=== PATIENT | male | born 1950 | race Caucasian/White ===

== ENCOUNTER 2016-12-09 08:42 | Day surgery (SDC) | payer MEDICARE, BC ==
[2016-12-09 09:13] VITALS: RESP 14; TEMP 98.1
[2016-12-09] MEDS ORDERED: ALPRAZolam 0.5 MG TAB PO STA (09:16)
[2016-12-09 09:33] LABS: Glucose,Whole Blood 107 mg/dL (75-99)
[2016-12-09 10:38] VITALS: BP 144/78; PULSE 92
--- NOTE | 2016-12-09 12:56 | US ---
EXAMINATION TYPE: US biopsy lymph node DATE OF EXAM: 12/09/2016 HISTORY: left neck mass. FINDINGS: Maximal barrier technique was utilized. The skin overlying a suitable path to the patient' s mass was localized with ultrasound and the overlying skin prepped and draped. Ultrasound was utili zed with sterile technique. Lidocaine was used for local anesthesia. A skin сергей was made with a sc alpel. A 20-gauge needle was advanced under direct ultrasound guidance and core specimen obtained of the mass. Specimen submitted in formalin to Pathology. Following the procedure, hemostasis achieve d and the patient is discharged in stable condition without complication. IMPRESSION:STATUS POST ULTRASOUND GUIDED CORE BIOPSY OF left supraclavicular MASS, PATHOLOGY IS PENDI NG. THIS PROCEDURE IS PERFORMED BY THE UNDERSIGNED.
== END 2016-12-09 10:50 | disposition home or self-care (01) ==
LOC: RADPROMAIN 08:42
PROVIDERS: ATTEND Family Medicine
DX: C82.11 Follicular lymphoma grade II, lymph nodes of head, face, and neck (principal)
CPT/HCPCS: 38505; 76942; 88305

== ENCOUNTER → 2017-03-25 | Outpatient (CLI) | payer MEDICARE, BC ==
[2017-03-25 11:54] LABS: Blood Urea Nitrogen 19 mg/dL (9-20); Non-African American GFR(MDRD) >60 (>60 ml/min/1.73 sqM)
--- NOTE | 2017-03-25 14:34 | CT ---
EXAMINATION TYPE: CT ChestAbdPelvis w con DATE OF EXAM: 03/25/2017 COMPARISON: Outside examination dated 11/19/2016 HISTORY: Lymphoma CT DLP: 2814.60 mGycm. Automated Exposure Control for Dose Reduction was Utilized. CONTRAST: CT scan of the thorax, abdomen and pelvis is performed with IV Contrast, patient injected with 100 ml mL of Omnipaque 300. FINDINGS: LUNGS: Singular right-sided pulmonary nodule within the right middle lobe measures 5 mm on series 5 i mage 26. Respiratory motion does slightly limit evaluation for subcentimeter pulmonary nodules. Subse gmental bibasilar dependent atelectasis is noted. The lungs are grossly clear, there is no concerning parenchymal mass or nodule identified. There is no pleural effusion or pneumothorax seen. The tra cheobronchial tree is patent. MEDIASTINUM: Soft tissue density posterior to the esophagus within the inferior mediastinum measures 4.7 x 2.6 x 8.1 cm and is seen deviating the esophagus anteriorly. This appears similar to the prior exam. OTHER: Left supraclavicular adenopathy measures 2.4 x 2.1 cm. LIVER/GB: No significant abnormality is appreciated. PANCREAS: No significant abnormality is seen. SPLEEN: Spleen is mildly enlarged measuring 14.0 cm. ADRENALS: No significant abnormality is seen. KIDNEYS: Hypoattenuated right renal lesions are too small to accurately characterize. No hydronephros is is seen. Left kidney is unremarkable. BOWEL: No significant abnormality is seen. LYMPH NODES: Numerous mesenteric lymph nodes are seen, which are enlarged most pronounced within the central mesentery. The largest conglomeration of nodes is inferior to the field of view provided on t he outside CT chest of 11/19/2016 and the seen within the right para midline upper abdomen on image 81 measuring 5.6 x 4.9 cm. Nodes within the right para midline abdomen surrounded and encased vessels a nd again are incompletely imaged on the prior outside CT chest, conglomeration measures approximately 5.9 x 7.6 cm on series 4 image 73. In comparison to the prior outside CT chest the left central mese nteric lymph nodes such as on image 65 appears similar to the prior exam measuring approximately 2.4 cm in short axis. Numerous enlarged periaortic lymph nodes are also seen with some the largest measur ed on image 76 (3.1 x 3.7 cm. No superficial inguinal adenopathy is seen or adenopathy within the low true pelvis. Haziness of the central mesentery likely represents infiltrative involvement of lymphom a. OSSEOUS STRUCTURES: No significant abnormality is seen. IMPRESSION: 1. Adenopathy within the posterior mediastinum, central upper abdomen, supraclavicular region, and hi gh pelvis compatible with the patient's known history of lymphoma. Associated splenomegaly is also no ignacia. In comparison to the outside provided chest examination dated 11/19/2016 this is similar in degre e, however comparison of the mid and lower abdomen is unable to be performed given no prior abdominal imaging. 2. Solitary right middle lobe pulmonary nodule and multifocal atelectasis. This is unlikely related t o the patient's history of lymphoma however attention on follow-up exams is recommended.
== END | disposition home or self-care (01) ==
LOC: RADCTMAIN 11:05
PROVIDERS: ATTEND Internal Medicine Hematology & Oncology
DX: C82.18 Follicular lymphoma grade II, lymph nodes of multiple sites (principal); R16.1 Splenomegaly, not elsewhere classified; J98.11 Atelectasis
CPT/HCPCS: 82565; 84520; 71260; 74177; 36415; Q9967

== ENCOUNTER → 2017-09-16 | Outpatient (CLI) | payer MEDICARE ==
[2017-09-16 11:48] LABS: Blood Urea Nitrogen 20 mg/dL (9-20)
--- NOTE | 2017-09-16 14:21 | CT ---
EXAMINATION TYPE: CT ChestAbdPelvis w con DATE OF EXAM: 09/16/2017 COMPARISON: Prior CT chest, abdomen, pelvis 03/25/2017 HISTORY: Lymphoma CT DLP: 2741 mGycm Automated exposure control for dose reduction was used. CONTRAST: CT scan of the chest, abdomen and pelvis is performed with Oral Contrast and with IV Contrast, patien t injected with 100 mL of Omnipaque 300. FINDINGS: LUNGS: The lungs are grossly clear, there is no concerning parenchymal mass or nodule identified. T here is no pleural effusion or pneumothorax seen. The tracheobronchial tree is patent. Supraclavicul ar node measures approximately 13 mm in short axis on the left compared to prior when it measured wilfred roximately 2.1 cm. MEDIASTINUM: Subcarinal soft tissue mass now measures 5.7 x 3.5 x 9 cm as compared to prior exam when it measured approximately 5.5 x 3 x8.1 cm. AORTA: No significant abnormality is seen. OTHER: No additional significant abnormality is seen. LIVER/GB: No significant abnormality is appreciated. PANCREAS: No significant abnormality is seen. SPLEEN: No significant abnormality is seen. ADRENALS: No significant abnormality is seen. KIDNEYS: No significant abnormality is seen. REPRODUCTIVE ORGANS: No gross abnormality seen. BOWEL: No significant abnormality is seen. FREE AIR: No Free Air visible. ASCITES: Minimal fluid or inflammatory change is present within the mesenteric fat. RETROPERITONEAL ADENOPATHY: Extensive retroperitoneal adenopathy is again noted in a similar distrib ution, soft tissue mass encases the right renal artery on current exam, present posterior to the infe rior vena cava greatest transverse dimension is approximately 7.9 cm where as on prior it measured 6. 9 cm. Left periaortic constanza mass measures 4.2 cm in greatest AP dimension and measured 3.7 cm on prio r. Abdominal adenopathy, soft tissue mass encasing some mesenteric vasculature shows anterior to post erior dimension of 8 cm x 17 cm in cephalad to caudal dimension and measured previously 7.6 x 15 cm. LYMPH NODES: No greater than 1 cm abdominal or pelvic lymph nodes are appreciated. URINARY BLADDER: No significant abnormality is seen. PELVIC ADENOPATHY: None visualized. OSSEOUS STRUCTURES: No significant abnormality is seen. IMPRESSION: Some interval increase in tumor burden as described.
== END | disposition home or self-care (01) ==
LOC: RADCTMAIN 11:03
PROVIDERS: ATTEND Internal Medicine Hematology & Oncology
DX: C82.18 Follicular lymphoma grade II, lymph nodes of multiple sites (principal)
CPT/HCPCS: 82565; 84520; 71260; 74177; 36415; Q9967

== ENCOUNTER → 2019-08-20 | Outpatient (CLI) | payer MEDICARE ==
--- NOTE | 2019-08-20 18:27 | US ---
EXAMINATION TYPE: US venous doppler duplex UE RT DATE OF EXAM: 08/20/2019 COMPARISON: NONE CLINICAL HISTORY: RT UPPER EXT, Swelling R22.31. Patient c/o skin redness and swelling for 4cm length posterior right forearm at chemotherapy IV site. Patient has Non Hodgkin's Lymphoma. SIDE PERFORMED: right Right Arm: Negative for DVT. Right arm is positive for superficial vein thrombosis for approximately 4 cm length at right posterior forearm area of skin redness. Tech findings called at exam's end to Shari, answering service for Dr Cardenas. IMPRESSION: There is no evidence for DVT. Superficial thrombus noted as discussed above.
== END | disposition home or self-care (01) ==
LOC: RADUSMAIN 17:17
PROVIDERS: ATTEND Internal Medicine Hematology & Oncology
DX: I82.611 Acute embolism and thrombosis of superficial veins of right upper extremity (principal)

== ENCOUNTER → 2020-08-25 | Day surgery (SDC) | payer MEDICARE ==
[2020-08-22 15:32] VITALS: BMI 35.0
[~2020-08-25] MED LIST: LIDOCAINE 1% INJ 10MG/ML (20 ML MDV) ONE; LIDOCAINE 1% INJ 10MG/ML (20 ML MDV) SQ ONE
[2020-08-25 12:13] LABS: Glucose,Whole Blood 118 mg/dL (75-99)
[2020-08-25 12:14] VITALS: BP 124/58; PULSE 63; RESP 16; TEMP 98.5
[2020-08-25 12:21] LABS: Anisocytosis Slight; HCT 29.3 % (39.0-53.0); HGB 9.9 gm/dL (13.0-17.5); MCHC 33.8 g/dL (31.0-37.0); MCV 100.6 fL (80.0-100.0); Macrocytosis Moderate; Mean Platelet Volume 9.4; Platelet Count 138 k/uL (150-450); Poikilocytosis Slight; RBC 2.92 m/uL (4.30-5.90); RDW 18.8 % (11.5-15.5); WBC 2.6 k/uL (3.8-10.6)
[2020-08-25 13:01] LABS: Potassium 5.7 mmol/L (3.5-5.1)
[2020-08-25 13:10] LABS: Band Neutrophils % 6 %; Eosinophils # (M) 0.03 k/uL (0-0.7); Lymphocytes # (M) 0.73 k/uL (1.0-4.8); Monocytes # (M) 0.83 k/uL (0-1.0); Neutrophils % (M) 33 %; Nucleated Red Blood Cells 0 /100 WBC (0-0); Total Cells Counted 100
[2020-08-25 13:12] LABS: Toxic Granulation Present
--- NOTE | 2020-08-25 15:10 | IR ---
PICC LINE PLACEMENT: HISTORY: Infection requiring long-term antibiotic therapy PROCEDURE: Ultrasound and fluoroscopic guidance of PICC line placement. COMPLICATIONS: None ANESTHESIA: 1. 1% Lidocaine locally. FINDINGS/TECHNIQUE: The procedure was explained to the patient. The risks, complications, benefits and alternatives were discussed and any questions were answered. Informed consent was obtained. The patient was placed supine on the fluoroscopic table and prepped and draped in the usual sterile fash ion. Utilizing a 21 gauge needle and sonographic and fluoroscopic guidance, access in the right bas ilic vein was achieved and there is placement of a 0.018 guidewire. The vein is patent. A 4-F sheat h was placed over the guidewire. The guidewire and dilator were removed and a 4-F. PICC line was lyndon eileen through the sheath with the tip at the level of the SVC. The sheath was removed, the catheter wa s flushed and sutured into position. The patient was stable throughout the procedure and remained st able upon discharge from the Department of Radiology. The vein puncture was patent under ultrasound. A murillo scale image was obtained to document patency of the vein punctured. All elements of the maximal barrier technique were utilized. FLUOROSCOPY TIME: 0.1 minutes and one image submitted IMPRESSION: Successful PICC line placement under ultrasound and fluoroscopic guidance.
[2020-08-26 02:33] LABS: Urine Alcohol Negative (Negative); Urine Barbiturate Negative (Negative); Urine Cocaine Negative (Negative); Urine Methadone Negative (Negative); Urine Opiates Positive (Negative); Urine Phencyclidine Negative (Negative)
== END ==
LOC: CATHCVL 11:19
PROVIDERS: ATTEND Radiology Diagnostic Radiology
DX: Z45.2 Encounter for adjustment and management of vascular access device (principal); C85.90 Non-Hodgkin lymphoma, unspecified, unspecified site; D75.9 Disease of blood and blood-forming organs, unspecified; I10 Essential (primary) hypertension; G89.29 Other chronic pain; M54.9 Dorsalgia, unspecified; E11.9 Type 2 diabetes mellitus without complications; Z98.890 Other specified postprocedural states; Z86.73 Personal history of transient ischemic attack (TIA), and cerebral infarction without residual deficits; Z92.21 Personal history of antineoplastic chemotherapy; Z79.899 Other long term (current) drug therapy; Z79.891 Long term (current) use of opiate analgesic
CPT/HCPCS: 36573; 80051; 82565; 84520; 85025; 80306; C1751; C1769; J2001

== ENCOUNTER → 2020-08-25 | Outpatient (CLI) | payer MEDICARE ==
--- NOTE | 2020-08-26 15:00 | ECHOF ---
Referral Reason:[id number] CHEMO EXPOSURE MEASUREMENTS -------- HEIGHT: 170.2 cm WEIGHT: 101.6 kg BP: IVSd: 1.1 cm (0.6 - 1.1) LVIDd: 4.7 cm (3.9 - 5.3) LVPWd: 1.1 cm (0.6 - 1.1) IVSs: 1.6 cm LVIDs: 3.3 cm LVPWs: 1.6 cm LA Diam: 3.6 cm (2.7 - 3.8) LAESV Index (A-L): 30.89 ml/m Ao Diam: 3.4 cm (2.0 - 3.7) AV Cusp: 1.6 cm (1.5 - 2.6) EPSS: 0.7 cm MV E Herman: 0.37 m/s MV DecT: 275 ms MV A Herman: 0.68 m/s MV E/A Ratio: 0.54 RAP: 5.00 mmHg RVSP: 27.98 mmHg MV EF SLOPE: 51.07 mm/s (70 - 150) MV EXCURSION: 13.02 mm (> 18.000) FINDINGS -------- Sinus rhythm. This was a technically good study. LV size, wall thickness and systolic function are normal, with an EF greater than 55%. The left nico tricular size is normal. The right ventricle is normal in size. LA is midly dilated 29-33ml/m2. The right atrial size is normal. The aortic valve is trileaflet, and appears structurally normal. No aortic stenosis or regurgitation. Mild mitral regurgitation is present. Mild tricuspid regurgitation present. Right ventricular systolic pressure is normal at < 35 mmHg. There is no pulmonic regurgitation present. There is no pericardial effusion. CONCLUSIONS -------- 1. LV size, wall thickness and systolic function are normal, with an EF greater than 55%. 2. The left ventricular size is normal. 3. The right ventricle is normal in size. 4. LA is midly dilated 29-33ml/m2. 5. The right atrial size is normal. 6. The aortic valve is trileaflet, and appears structurally normal. No aortic stenosis or regurgitati on. 7. Mild mitral regurgitation is present. 8. Mild tricuspid regurgitation present. 9. There is no pericardial effusion. CLINICAL MEDICAL TRANSCRIPTIONIST: Isabel Flores RDCS
== END | disposition home or self-care (01) ==
LOC: RADECHMAIN 11:22
PROVIDERS: ATTEND Internal Medicine Hematology & Oncology
DX: I08.1 Rheumatic disorders of both mitral and tricuspid valves (principal)
CPT/HCPCS: 93306